=== PATIENT | female | born 1980 | race Caucasian/White ===

== ENCOUNTER 2017-07-20 22:14 | Emergency (ER) | payer OTHER ==
[~2017-07-20] VITALS: Ht 182.9 cm; Wt 94.8 kg
[2017-07-20] MEDS ORDERED: HUMULIN 70100 UNIT/2 (22:25)
[2017-07-20] MEDS ORDERED: NEURONTIN800 MG PO (22:26)
[2017-07-20] MEDS ORDERED: LANTUS SOL100 UNIT/1 (22:26)
[2017-07-20] MEDS ORDERED: ENALAPRIL MALEA20 MG (22:26)
[2017-07-20] MEDS ORDERED: FORTAMET1000 MG PO (22:26)
[2017-07-21] MEDS ORDERED: GLIMEPIRIDE4 MG PO (05:06)
== END 2017-07-21 05:02 | disposition home or self-care (01) ==
LOC: ER 22:14
DX: G44.209 Tension-type headache, unspecified, not intractable (principal); E11.9 Type 2 diabetes mellitus without complications; R11.11 Vomiting without nausea

== ENCOUNTER 2017-10-26 00:05 | Emergency (ER) | payer OTHER ==
[~2017-10-26] VITALS: Ht 182.9 cm; Wt 94.8 kg
[~2017-10-26 00:05] MED LIST: ENALAPRIL MALEA20 MG; FORTAMET1000 MG PO; GLIMEPIRIDE4 MG PO; HUMULIN 70100 UNIT/2; LANTUS SOL100 UNIT/1; NEURONTIN800 MG PO
[2017-10-26] MEDS ORDERED: DOLOGESIC 500-1 EACH PO (06:19)
[2017-10-26] MEDS ORDERED: CIPRO500 MG PO (06:19)
== END 2017-10-26 06:44 | disposition home or self-care (01) ==
LOC: ER 00:05
DX: E11.621 Type 2 diabetes mellitus with foot ulcer (principal); L97.519 Non-pressure chronic ulcer of other part of right foot with unspecified severity